=== PATIENT | female | born 1965 | race Caucasian/White ===

== ENCOUNTER → 2017-12-01 | Outpatient (CLI) | payer OTHER ==
[2017-12-01 13:15] LABS: INFLUENZA B ANTIGEN Neg for Influ B (NEG)
[2017-12-01 13:15] LABS: INFLUENZA A ANTIGEN Neg for Influ A (NEG)
== END | disposition home or self-care (01) ==
LOC: C.LABMFLN 08:14
DX: J45.901 Unspecified asthma with (acute) exacerbation (principal)